=== PATIENT | male | born 1995 | race American Indian/Alaskan Native ===

== ENCOUNTER 2017-06-08 20:38 | Emergency (ER) | payer SELFPAY ==
[2017-06-08 21:11] LABS: Basophils % (Auto) 0.6 % (0.0-1.8); Eosinophils % (Auto) 1.8 % (0.0-4.3); Hematocrit 44.2 % (35.5-45.6); Hemoglobin 15.1 gm/dl (11.8-15.2); Mean Corpuscular HGB Conc 34 % (32-34); Mean Corpuscular Hemoglobin 28 pg (28-32); Mean Corpuscular Volume 82 fl (84-94); Platelet Count 183 K/mm3 (140-440); Red Blood Count 5.39 M/mm3 (3.65-5.03); Red Cell Distribution Width 13.7 % (13.2-15.2); White Blood Count 6.7 K/mm3 (4.5-11.0)
[2017-06-08 21:30] LABS: Anion Gap 16 mmol/L; BUN/Creatinine Ratio 18.75; Blood Urea Nitrogen 15 mg/dL (9-20); Calcium 9.5 mg/dL (8.4-10.2); Carbon Dioxide 28 mmol/L (22-30); Glucose 90 mg/dL (75-100); Potassium 4.2 mmol/L (3.6-5.0); Sodium 148 mmol/L (137-145)
[2017-06-09] MEDS ORDERED: TORADOL IM ONE (10:30)
--- NOTE | 2017-06-09 10:47 | XRay Report ---
ROUTINE CHEST, TWO VIEWS: HISTORY: chest pain. The trachea, heart, mediastinal contour, lung castillo and bony thorax are unremarkable. IMPRESSION: Unremarkable chest x-ray.
--- NOTE | 2017-06-09 11:12 | Emergency Department Report ---
ED Chest Pain HPI - General Chief Complaint: Chest Pain Stated Complaint: CP Time Seen by Provider: 06/09/17 10:16 Source: patient Mode of arrival: Ambulatory Limitations: No Limitations - History of Present Illness Initial Comments: 21-year-old male in no significant medical problems presents to the hospital complaints of chest pain 11 days. Pain is in the mid upper and left upper part of the chest radiating to her back. Constant, aching, 8/10 intensity. Worse with movements, activity, and deep inspiration. Positive shortness of breath. Positive associated nausea with diarrhea for the past 2 days. No reports of fever. 4 days ago patient had a alicia with acute worsening of chest pain but denies burning sensation typical of Gerd. Patient drinks other acidic drinks did not have recurrence in chest pain. Patient denies tobacco use , family history CAD/[place], or cocaine use. Also denies recent travel, calf tenderness, history of PE/DVT. Severity scale (0 -10): 6 - Related Data Previous Rx's Medication Instructions Recorded Last Taken Type Ibuprofen [Motrin] 800 mg PO Q8HR PRN #30 tablet 06/09/17 Unknown Rx Omeprazole Magnesium [PriLOSEC Otc] 20 mg PO QDAY #30 tablet. 06/09/17 Unknown Rx traMADol [Ultram 50 MG tab] 50 mg PO Q6HR PRN #20 tablet 06/09/17 Unknown Rx Allergies Allergy/AdvReac Type Severity Reaction Status Date / Time No Known Allergies Allergy Verified 06/08/17 20:56 Heart Score - HEART Score History: Slightly suspicious EKG: Normal Age: < 45 Risk factors: No known risk factors Troponin: < normal limit HEART Score: 0 ED Review of Systems ROS: Stated complaint: CP Other details as noted in HPI Comment: All other systems reviewed and negative Other: Constitutional: No fevers chills Eyes: No eye pain visual changes ENT: No ear pain or throat pain Neck: Denies pain Respiratory: Denies cough wheezing Cardiovascular: Denies palpitations, syncope GI: Denies abdominal pain, vomiting : Denies dysuria Musculoskeletal: Denies back pain Skin: Denies rash, lesions, erythema Neurologic: Denies headache, numbness, weakness ED Past Medical Hx - Past Medical History Previous Medical History?: No - Surgical History Past Surgical History?: No - Social History Smoking Status: Former Smoker Substance Use Type: Alcohol - Medications Home Medications: Home Medications Medication Instructions Recorded Confirmed Last Taken Type Ibuprofen [Motrin] 800 mg PO Q8HR PRN #30 tablet 06/09/17 Unknown Rx Omeprazole Magnesium [PriLOSEC Otc] 20 mg PO QDAY #30 tablet. 06/09/17 Unknown Rx traMADol [Ultram 50 MG tab] 50 mg PO Q6HR PRN #20 tablet 06/09/17 Unknown Rx ED Physical Exam - General Limitations: No Limitations - Other Other exam information: General: No limitations, patient is alert in no acute distress Head exam: Atraumatic, normocephalic Eyes exam: Normal appearance ENT: Moist mucous membrane, normal oropharynx Neck exam: Normal inspection, full range of motion, no meningismus nontender Respiratory exam: Clear to auscultation bilateral, no wheezes, rales, crackles Cardiovascular: Normal rate and rhythm, normal heart sounds, chest wall nontender Abdomen: Soft, nondistended, and nontender, with normal bowel sounds, no rebound, or guarding Extremity: Full range of motion normal inspection no deformity, no calf tenderness or edema Back: Normal Inspection, full range of motion, no tenderness Neurologic: Alert, oriented x3, cranial nerves intact, no motor or sensory deficit Psychiatric: normal affect, normal mood Skin: Warm, dry, intact ED Course Vital Signs 06/08/17 06/08/17 06/09/17 20:55 20:56 04:22 Temperature 98.4 F 97.9 F 97.4 F L Pulse Rate 76 51 L Respiratory 16 16 18 Rate Blood Pressure 129/86 129/86 119/78 Blood Pressure [Left] O2 Sat by Pulse 99 99 Oximetry 06/09/17 06/09/17 06/09/17 07:30 08:49 11:00 Temperature 97.4 F L Pulse Rate 67 Respiratory 16 16 16 Rate Blood Pressure Blood Pressure 113/78 [Left] O2 Sat by Pulse 98 98 Oximetry - Reevaluation(s) Reevaluation #1: 06/09/17 11:18 Patient received Toradol IM 60 mg XIAO score - Xiao Score Age > 65: (0) No Aspirin use within the Past 7 Days: (0) No 3 or more CAD Risk Factors: (0) No 2 or more Angina events in past 24 hrs: (0) No Known CAD with more than 50% Stenosis: (0) No Elevated Cardiac Markers: (0) No ST Deviation Greater than 0.5mm: (0) No XIAO Score: 0 ED Medical Decision Making - Lab Data Result diagrams: 06/08/17 21:02 06/08/17 21:02 Lab Results 06/08/17 06/08/17 06/09/17 Range/Units 21:02 21:02 00:43 WBC 6.7 (4.5-11.0) K/mm3 RBC 5.39 H (3.65-5.03) M/mm3 Hgb 15.1 (11.8-15.2) gm/dl Hct 44.2 (35.5-45.6) % MCV 82 L (84-94) fl MCH 28 (28-32) pg MCHC 34 (32-34) % RDW 13.7 (13.2-15.2) % Plt Count 183 (140-440) K/mm3 Lymph % (Auto) 33.2 (13.4-35.0) % [place] % (Auto) 7.7 H (0.0-7.3) % Eos % (Auto) 1.8 (0.0-4.3) % Baso % (Auto) 0.6 (0.0-1.8) % Lymph # 2.2 (1.2-5.4) K/mm3 [place] # 0.5 (0.0-0.8) K/mm3 Eos # 0.1 (0.0-0.4) K/mm3 Baso # 0.0 (0.0-0.1) K/mm3 Seg Neutrophils % 56.7 (40.0-70.0) % Seg Neutrophils # 3.8 (1.8-7.7) K/mm3 D-Dimer (0-234) ng/mlDDU Sodium 148 H (137-145) mmol/L Potassium 4.2 (3.6-5.0) mmol/L Chloride 108.0 H (98-107) mmol/L Carbon Dioxide 28 (22-30) mmol/L Anion Gap 16 mmol/L BUN 15 (9-20) mg/dL Creatinine 0.8 (0.8-1.5) mg/dL Estimated GFR > 60 ml/min BUN/Creatinine Ratio 18.75 % Glucose 90 (75-100) mg/dL Calcium 9.5 (8.4-10.2) mg/dL Troponin T < 0.010 < 0.010 (0.00-0.029) ng/mL 06/09/17 06/09/17 Range/Units 02:59 10:33 WBC (4.5-11.0) K/mm3 RBC (3.65-5.03) M/mm3 Hgb (11.8-15.2) gm/dl Hct (35.5-45.6) % MCV (84-94) fl MCH (28-32) pg MCHC (32-34) % RDW (13.2-15.2) % Plt Count (140-440) K/mm3 Lymph % (Auto) (13.4-35.0) % [place] % (Auto) (0.0-7.3) % Eos % (Auto) (0.0-4.3) % Baso % (Auto) (0.0-1.8) % Lymph # (1.2-5.4) K/mm3 [place] # (0.0-0.8) K/mm3 Eos # (0.0-0.4) K/mm3 Baso # (0.0-0.1) K/mm3 Seg Neutrophils % (40.0-70.0) % Seg Neutrophils # (1.8-7.7) K/mm3 D-Dimer < 135 (0-234) ng/mlDDU Sodium (137-145) mmol/L Potassium (3.6-5.0) mmol/L Chloride (98-107) mmol/L Carbon Dioxide (22-30) mmol/L Anion Gap mmol/L BUN (9-20) mg/dL Creatinine (0.8-1.5) mg/dL Estimated GFR ml/min BUN/Creatinine Ratio % Glucose (75-100) mg/dL Calcium (8.4-10.2) mg/dL Troponin T < 0.010 (0.00-0.029) ng/mL - EKG Data -: EKG Interpreted by Me (sinus bradycardia rate [address] elevation or T-wave inversion) - EKG Data When compared to previous EKG there are: previous EKG unavailable - Radiology Data Radiology results: report reviewed (chest x-ray: Unremarkable) - Medical Decision Making Patient has 3 negative cardiac enzymes, no risk factors, unremarkable EKG and negative d-dimer. Patient was discharged home with symptomatic pain treatment and follow-up with primary care doctor will be encouraged. - Differential Diagnosis MSK pain, GERD, esophageal spasm, PE, unstable angina, pleurisy, pneumothor Critical Care Time: No Critical care attestation.: If time is entered above; I have spent that time in minutes in the direct care of this critically ill patient, excluding procedure time. ED Disposition Clinical Impression: Atypical chest pain Disposition: TO HOME OR SELFCARE Is pt being admited?: No Does the pt Need Aspirin: No Condition: Stable Instructions: Chest Pain (ED) Additional Instructions: Follow-up with the primary care doctor or clinic provided. Return if symptoms worsen. Prescriptions: Ibuprofen [Motrin] 800 mg PO Q8HR PRN #30 tablet PRN Reason: Pain Omeprazole Magnesium [PriLOSEC Otc] 20 mg PO QDAY #30 tablet. traMADol [Ultram 50 MG tab] 50 mg PO Q6HR PRN #20 tablet PRN Reason: Pain Referrals: ANDREWS HERMOSILLO [Other] - 3-5 Days [facility] [Provider Group] - 3-5 Days Time of Disposition: 11:24
[2017-06-09 11:47] VITALS: BP 114/76
== END 2017-06-09 11:20 | disposition home or self-care (01) ==
LOC: ED 20:38
DX: R07.89 Other chest pain (principal); R06.02 Shortness of breath; R11.0 Nausea
CPT/HCPCS: 36415; 71020; 80048; 84484; 85025; 85379; 93005; 93010; 96372; 99284; J1885